=== PATIENT | male | born 1980 | race Caucasian/White ===

== ENCOUNTER 2024-10-04 23:16 | Emergency (ER) | payer OTHER ==
[~2024-10-04] VITALS: Ht 175.3 cm; Wt 79.4 kg
[2024-10-04] MEDS ORDERED: CefTRIAXone Sodium 2,000 MG in NS 100 ML IV ONE (23:35)
[2024-10-04] MEDS ORDERED: VANCOMYCIN IV SCH (23:35)
[2024-10-04] MEDS ORDERED: Morphine Sulfate 4 MG/1 ML Injection IV ONE (23:35)
[2024-10-04] MEDS ORDERED: Rabies Vaccine (Pcec)/Pf 1 mL 2.5 Unit Kit IM ONE (23:35)
[2024-10-04] MEDS ORDERED: Rabies Immune Globulin 150 IU / ML 2ML Vial IM ONE (23:35)
[2024-10-04] MEDS ORDERED: Rabies Immune Globulin/Pf 300 Unit/ML 1ML Vial IM ONE (23:50)
[2024-10-05] MEDS ORDERED: LEVFLO500 PO (00:22)
[2024-10-05] MEDS ORDERED: METR500 PO (00:22)
== END 2024-10-05 00:42 | disposition left against medical advice (07) ==
LOC: ER 23:16
DX: S61.452A Open bite of left hand, initial encounter (principal); L02.512 Cutaneous abscess of left hand; W54.0XXA Bitten by dog, initial encounter
CPT/HCPCS: 73130; 90375; 90376; 99283-25; A9270

== ENCOUNTER 2024-11-01 17:50 | Emergency (ER) | payer OTHER ==
[~2024-11-01] VITALS: Ht 185.4 cm; Wt 75.8 kg
[~2024-11-01 17:50] MED LIST: LEVFLO500 PO; METR500 PO
[2024-11-01] MEDS ORDERED: Ibuprofen600 MG PO (21:28)
== END 2024-11-01 21:46 | disposition home or self-care (01) ==
LOC: ER 17:50
DX: S06.9X1A Unspecified intracranial injury with loss of consciousness of 30 minutes or less, initial encounter (principal); S13.9XXA Sprain of joints and ligaments of unspecified parts of neck, initial encounter; R00.0 Tachycardia, unspecified; V03.10XA Pedestrian on foot injured in collision with car, pick-up truck or van in traffic accident, initial encounter
CPT/HCPCS: 70450; 72125; 73030; 73070; 73100; 99284-25